=== PATIENT | female | born 2000 | race Two or more races ===

== ENCOUNTER 2023-09-03 06:58 | Inpatient (IN) | payer OTHER ==
[2023-09-03] MEDS ORDERED: Bupivacaine 0.25% 10 ML SDV ONE (07:00)
[2023-09-03] MEDS ORDERED: ePHEDrine 50 MG/ML SDV ONE (07:00)
[2023-09-03] MEDS ORDERED: Nalbuphine 10 MG/ML Syringe IVPUSH PRN (07:22)
[2023-09-03] MEDS ORDERED: Sodium Chloride 0.9% 10 ML Syringe FLUSH PRN (07:22)
[2023-09-03] MEDS ORDERED: Ondansetron 4 MG/2 ML SDV IVPUSH PRN (07:22)
[2023-09-03] MEDS ORDERED: Lidocaine 1% 50 ML MDV INJECT PRN (07:22)
[2023-09-03] MEDS ORDERED: Oxytocin/Lactated Ringers 30 UNIT/500 ML BAG IV SCH (07:30)
[2023-09-03 07:58] LABS: BASOPHILS PERCENT AUTO 0.3 % (0.0-1.0); EOSINOPHILS ABSOLUTE AUTO 0.1 K/mm3 (0.0-0.4); EOSINOPHILS PERCENT AUTO 0.7 % (0.0-6.0); HEMATOCRIT 30.3 % (37.0-47.0); HEMOGLOBIN 9.9 gm/dl (12.0-16.0); IMMATURE GRAN ABSOLUTE AUTO 0.07 K/mm3 (0.00-0.05); IMMATURE GRAN PERCENT AUTO 0.7 % (0.0-0.4); LYMPHOCYTES ABSOLUTE AUTO 2.1 K/mm3 (1.0-4.8); LYMPHOCYTES PERCENT AUTO 21.8 % (24.0-44.0); MEAN CORPUSCULAR HEMOGLOBIN 25.3 pg (28.0-32.0); MEAN CORPUSCULAR HGB CONC 32.7 g/dl (32.0-36.0); MEAN CORPUSCULAR VOLUME 77.5 fl (83.0-99.0); MEAN PLATELET VOLUME 11.9 fl (9.4-12.3); MONOCYTES ABSOLUTE AUTO 0.8 K/mm3 (0.0-0.8); MONOCYTES PERCENT AUTO 8.2 % (0.0-8.0); NEUTROPHILS ABSOLUTE AUTO 6.5 K/mm3 (1.8-7.7); NEUTROPHILS PERCENT AUTO 68.3 % (41.0-71.0); PLATELET COUNT,PLT 150 K/mm3 (150-400); RED BLOOD CELL COUNT 3.91 M/mm3 (4.10-5.30); WHITE BLOOD CELL COUNT,WBC 9.51 K/mm3 (3.9-11.3)
[2023-09-03] MEDS: Lactated Ringers 1,000 ML IV SCH (08:00)
[2023-09-03] MEDS: Oxytocin/Lactated Ringers 30 UNIT/500 ML BAG IV SCH (08:26)
[2023-09-03 08:27] LABS: A/G RATIO 0.6 (1-2); ALBUMIN 2.5 g/dl (3.4-5.0); ANION GAP 15.7 (5-15); BILIRUBIN TOTAL 0.2 mg/dL (0.2-1.0); BUN/CREATININE RATIO 7.8 (14-18); CALCIUM 8.7 mg/dL (8.5-10.1); CREATININE 0.9 mg/dL (0.55-1.02); EST CRCL DRUG DOSING (CG) 99.74 mL/min; POTASSIUM,K 3.7 mEq/L (3.5-5.1); PROTEIN TOTAL,TP 6.4 g/dl (6.4-8.2)
[2023-09-03 08:28] LABS: SLIDE REVIEW ABNORMAL SMEAR
[2023-09-03] MEDS ORDERED: ePHEDrine 50 MG/ML SDV IVPUSH PRN (12:31)
[2023-09-03] MEDS ORDERED: diphenhydrAMINE 50 MG/ML SDV IVPUSH PRN (12:31)
[2023-09-03] MEDS: fentaNYL 100 MCG/2 ML SDV EPIDUR PRN (12:46)
[2023-09-03] MEDS: Bupivacaine/fentaNYL/NS 100 ML Bag EPIDUR PRN (12:47)
[2023-09-03] MEDS ORDERED: Sennosides 8.6 MG Tab PO PRN (16:48)
[2023-09-03] MEDS: Sodium Chloride 0.9% 10 ML Syringe FLUSH SCH (19:19)
[2023-09-03] MEDS: Ibuprofen 800 MG Tab PO SCH (19:39)
[2023-09-03] MEDS: Witch Hazel Medicated Pads 40/Jar TOP PRN (20:33)
[2023-09-03] MEDS: Benzocaine/Menthol 20%-0.5% Spray 78 GM Cannister TOP PRN (20:33)
[2023-09-04] MEDS: Ibuprofen 800 MG Tab PO SCH (11:50)
[2023-09-05] MEDS: Acetaminophen 325 MG Tab PO PRN (05:03)
[2023-09-05] MEDS ORDERED: Docusate Sodium 100 MG Cap PO PRN (05:06)
== END 2023-09-05 11:00 | disposition home or self-care (01) | DRG 807 ==
LOC: JD.OB 06:58 → OBSVTOIN 16:48 → JD.OB 16:50
PROVIDERS: ADMIT Obstetrics & Gynecology; ATTEND Obstetrics & Gynecology
PROC: 10E0XZZ Delivery of Products of Conception, External Approach (ICD-10-PCS; principal; 2023-09-03)
PROC: 0KQM0ZZ Repair Perineum Muscle, Open Approach (ICD-10-PCS; 2023-09-03)
PROC: 10907ZC Drainage of Amniotic Fluid, Therapeutic from Products of Conception, Via Natural or Artificial Opening (ICD-10-PCS; 2023-09-03)
PROC: 3E033VJ Introduction of Other Hormone into Peripheral Vein, Percutaneous Approach (ICD-10-PCS; 2023-09-03)
PROC: 3E0R3BZ Introduction of Anesthetic Agent into Spinal Canal, Percutaneous Approach (ICD-10-PCS; 2023-09-03)
PROC: 00HU33Z Insertion of Infusion Device into Spinal Canal, Percutaneous Approach (ICD-10-PCS; 2023-09-03)
DX: O48.0 Post-term pregnancy (principal); Z37.0 Single live birth; O99.344 Other mental disorders complicating childbirth; F41.9 Anxiety disorder, unspecified; F32.A Depression, unspecified; O77.0 Labor and delivery complicated by meconium in amniotic fluid; O70.1 Second degree perineal laceration during delivery; O76 Abnormality in fetal heart rate and rhythm complicating labor and delivery; Z3A.40 40 weeks gestation of pregnancy
CPT/HCPCS: 01967; 36415; 51701; 51702; 59025; 59409; 80053; 85025; 86592; 86850; 86900; 86901; A9270-GY; C1758; J0665; J3010; J3490; J7120; J7999